=== PATIENT | male | born 1995 | race Caucasian/White ===

== ENCOUNTER 2017-06-15 16:29 | Emergency (ER) | payer MEDICAID ==
[~2017-06-15] VITALS: Ht 185.4 cm; Wt 105.0 kg
[2017-06-15 16:38] VITALS: BP 133/79; PULSE 77; RESP 16; TEMP 98.2; O2SAT 98
[2017-06-15] MEDS ORDERED: TEST1INJ3 IM (16:48)
--- NOTE | 2017-06-15 18:06 | RADRPT ---
EXAM DATE/TIME: 06/15/2017 17:42 [facility] COMPARISON: No previous studies available for comparison. INDICATIONS : Right ankle pain and swelling. MEDICAL HISTORY : None. SURGICAL HISTORY : None. ENCOUNTER: Initial ACUITY: 2 days PAIN SCORE: 8/10 LOCATION: Right ankle FINDINGS: Three view exam was performed of the right ankle. The bony structures are in normal alignment. No e vidence of acute fracture or dislocation. There is soft tissue swelling over the lateral malleolus. T he ankle mortise is intact. No radiopaque foreign bodies are seen. Bony mineralization is normal. CONCLUSION: Soft tissue swelling of the lateral malleolus with no acute fracture or malalignment. Noe Padilla MD on June 15, 2017 at 18:04 Board Certified Radiologist. This report was verified electronically.
--- NOTE | 2017-06-15 18:07 | RADRPT ---
EXAM DATE/TIME: 06/15/2017 17:45 [facility] COMPARISON: No previous studies available for comparison. INDICATIONS : Pain and swelling to right foot MEDICAL HISTORY : None. SURGICAL HISTORY : None. ENCOUNTER: Initial ACUITY: 2 days PAIN SCORE: 8/10 LOCATION: Right foot FINDINGS: Three view examination of the right foot demonstrates no soft tissue swelling, dislocation, or fractu re. The tarsal bones appear intact. The interphalangeal and metatarsophalangeal joints are intact. The calcaneus is intact. Bony mineralization is normal. CONCLUSION: Negative trauma study. Noe Padilla MD on June 15, 2017 at 18:04 Board Certified Radiologist. This report was verified electronically.
[2017-06-15] MEDS ORDERED: predniSONE 20 MG TAB PO ONE (18:15)
[2017-06-15] MEDS ORDERED: TETANUS/DIPHTHERIA TOXOID ADULT 0.5 ML VIAL IM ONE (18:15)
[2017-06-15] MEDS ORDERED: FLUO0.05 TOPICAL (18:16)
--- NOTE | 2017-06-15 18:19 | PD ---
HPI . Right foot pain Chief Complaint: Skin Problem Time Seen by Provider: 16:58 Travel History International Travel<30 days: No Contact w/Intl Traveler<30days: No Traveled to known affect area: No History of Present Illness HPI 22-year-old male presents to emergency department with his parents for evaluation of right foot pain and swelling. Multiple very itchy white pustules with erythema surrounding the base noted on right foot. 2 noted on left foot. There is a language barrier noted. The family speaks Swedish. I attempted to obtain a sales receptionist but the father adamantly declined using a sales receptionist stating he spoke perfect Indian. From the history I was able to gather the patient has cognitive delays, autism, XXY syndrome. The family explained that the patient feels pain differently and did not complain of any pain in his foot. They're not exactly sure when the swelling, injury occurred. The mother denies the patient falling or injuring the right side however cannot explain why it is swollen. The patient is not verbally communicating. The mother is denying any other systemic physiological complaints such as fever, chills, chest pain, shortness breath, abdominal pain, nausea, vomiting, diarrhea. PFSH Past Medical History Developmental Delay: Yes (DOWNS) Immunizations Current: Yes Past Surgical History Surgical History: No Previous Surgery Social History Alcohol Use: No Tobacco Use: No Substance Use: No Allergies-Medications (Allergen,Severity, Reaction): Coded Allergies: No Known Allergies (Unverified , 06/15/17) Reported Meds & Prescriptions Reported Meds & Active Scripts Active Fluocinonide Topical (Fluocinonide) 0.05% Cream 1 Applic TOPICAL BID Apply thin layer to affected area(s) Reported Testosterone Cypionate Inj (Testosterone Cypionate) 100 Mg/Ml Inj Unknown Dose IM Q14D Review of Systems Except as stated in HPI: all other systems reviewed are Neg Physical Exam Narrative GENERAL: Well-nourished, well-developed not verbally communicating 22-year-old male patient in no acute distress. Nontoxic appearing. SKIN: Multiple itchy white pustules noted to right foot with erythema spreading the base noted to the right foot. Two itchy white pustules with erythema surrounding the base noted to the left foot. HEAD: Normocephalic. Atraumatic. EYES: No scleral icterus. No injection or drainage. NECK: Supple, trachea midline. No JVD or lymphadenopathy. CARDIOVASCULAR: Regular rate and rhythm without murmurs, gallops, or rubs. RESPIRATORY: Breath sounds equal bilaterally. No accessory muscle use. GASTROINTESTINAL: Abdomen soft, non-tender, nondistended. MUSCULOSKELETAL: Right foot and ankle mildly edematous. Mild ecchymotic area noted to the dorsal medial aspect of the right foot. No obvious deformity. Data Data Last Documented VS Vital Signs Date Time Temp Pulse Resp B/P (MAP) Pulse Ox O2 Delivery O2 Flow Rate FiO2 06/15/17 16:38 98.2 77 16 133/79 (97) 98 Orders Orders Ankle, Complete ([id number]) (06/15/17 17:25) Foot, Complete ([id number]) (06/15/17 17:25) Ice/Cold Pack (06/15/17 17:25) Tetanus/Diphtheria Tox Adult (Tetanus/Di (06/15/17 18:15) Prednisone (Deltasone) (06/15/17 18:15) Ed Discharge Order (06/15/17 18:19) [facility] Medical Decision Making Medical Screen Exam Complete: Yes Emergency Medical Condition: Yes Differential Diagnosis Differential diagnoses include but not limited to cellulitis, bug bites, fracture, contusion Narrative Course 22-year-old male patient presents emergency department for evaluation of right foot injury. The history is difficult to obtain due to willing with very. The father and mother at bedside and the patient is not verbally communicating. The mother at first agreed to obtain a sales receptionist but the father adamantly denied it saying he didn't need it because he spoke perfect Indian. The right foot looks to be covered in aunt bites. There are multiple white itchy pustules with erythema surrounding the base. There are 2 of these pustules noted to the left foot. Both are itchy. The right foot and ankle is mildly edematous. There is a small area of ecchymosis noted to the dorsal medial aspect of the right foot. The mother denies the patient injuring the right foot are falling. Due to the language barrier though an adequate history is difficult to obtain. I discussed the patient case with my attending Dr. Marin and he suggested that we x-ray the right foot and ankle and then treat the ant bites with a steroid cream. X-ray of the right foot and ankle are unremarkable but did show some soft tissue swelling. Due to the unknown mechanism of injury and the inability of the patient's family to confirm whether the patient was up-to-date on his vaccines his tetanus was updated during this visit. Patient was discharged home with prescription for fluocinolone and instructions to follow up with his primary care otherwise to return to the emergency Department with any worsening signs of infection. Diagnosis Primary Impression: Bug bites Qualified Codes: W57.XXXA - Bitten or stung by nonvenomous insect and other nonvenomous arthropods, initial encounter Referrals: Primary Care Physician Patient Instructions: General Instructions, Insect Bite or Sting (ED) Additional Instructions: Please return to emergency department if your symptoms return or worsen. Return to the emergency department if you notice any secondary infection in the foot such as increasing pain, swelling, redness or fevers. Follow up with your primary care provider. Keep foot and bites clean and dry. Apply the steroid cream twice a day until the problem has resolved. May apply ice to the foot to reduce the swelling. Elevate the foot when resting. Med/Other Pt SpecificInfo: Prescription(s) given Scripts Fluocinonide Topical (Fluocinonide Topical) 0.05% Cream 1 APPLIC TOPICAL BID, #120 GM 0 Refills Apply thin layer to affected area(s) Prov: Trini Burnette 06/15/17 Disposition: 01 DISCHARGE HOME Condition: Stable Trini Burnette Jun 15, 2017 18:19
--- NOTE | 2017-06-15 18:19 | PD ---
HPI . Right foot pain Chief Complaint: Skin Problem Time Seen by Provider: 16:58 Travel History International Travel<30 days: No Contact w/Intl Traveler<30days: No Traveled to known affect area: No History of Present Illness HPI 22-year-old male presents to emergency department with his parents for evaluation of right foot pain and swelling. Multiple very itchy white pustules with erythema surrounding the base noted on right foot. 2 noted on left foot. There is a language barrier noted. The family speaks English. I attempted to obtain a bookkeeping clerk but the father adamantly declined using a bookkeeping clerk stating he spoke perfect [place]ese. From the history I was able to gather the patient has cognitive delays, autism, XXY syndrome. The family explained that the patient feels pain differently and did not complain of any pain in his foot. They're not exactly sure when the swelling, injury occurred. The mother denies the patient falling or injuring the right side however cannot explain why it is swollen. The patient is not verbally communicating. The mother is denying any other systemic physiological complaints such as fever, chills, chest pain, shortness breath, abdominal pain, nausea, vomiting, diarrhea. PFSH Past Medical History Developmental Delay: Yes (DOWNS) Immunizations Current: Yes Past Surgical History Surgical History: No Previous Surgery Social History Alcohol Use: No Tobacco Use: No Substance Use: No Allergies-Medications (Allergen,Severity, Reaction): Coded Allergies: No Known Allergies (Unverified , 06/15/17) Reported Meds & Prescriptions Reported Meds & Active Scripts Active Fluocinonide Topical (Fluocinonide) 0.05% Cream 1 Applic TOPICAL BID Apply thin layer to affected area(s) Reported Testosterone Cypionate Inj (Testosterone Cypionate) 100 Mg/Ml Inj Unknown Dose IM Q14D Review of Systems Except as stated in HPI: all other systems reviewed are Neg Physical Exam Narrative GENERAL: Well-nourished, well-developed not verbally communicating 22-year-old male patient in no acute distress. Nontoxic appearing. SKIN: Multiple itchy white pustules noted to right foot with erythema spreading the base noted to the right foot. Two itchy white pustules with erythema surrounding the base noted to the left foot. HEAD: Normocephalic. Atraumatic. EYES: No scleral icterus. No injection or drainage. NECK: Supple, trachea midline. No JVD or lymphadenopathy. CARDIOVASCULAR: Regular rate and rhythm without murmurs, gallops, or rubs. RESPIRATORY: Breath sounds equal bilaterally. No accessory muscle use. GASTROINTESTINAL: Abdomen soft, non-tender, nondistended. MUSCULOSKELETAL: Right foot and ankle mildly edematous. Mild ecchymotic area noted to the dorsal medial aspect of the right foot. No obvious deformity. Data Data Last Documented VS Vital Signs Date Time Temp Pulse Resp B/P (MAP) Pulse Ox O2 Delivery O2 Flow Rate FiO2 06/15/17 16:38 98.2 77 16 133/79 (97) 98 Orders Orders Ankle, Complete ([id number]) (06/15/17 17:25) Foot, Complete ([id number]) (06/15/17 17:25) Ice/Cold Pack (06/15/17 17:25) Tetanus/Diphtheria Tox Adult (Tetanus/Di (06/15/17 18:15) Prednisone (Deltasone) (06/15/17 18:15) Ed Discharge Order (06/15/17 18:19) [facility] Medical Decision Making Medical Screen Exam Complete: Yes Emergency Medical Condition: Yes Differential Diagnosis Differential diagnoses include but not limited to cellulitis, bug bites, fracture, contusion Narrative Course 22-year-old male patient presents emergency department for evaluation of right foot injury. The history is difficult to obtain due to willing with very. The father and mother at bedside and the patient is not verbally communicating. The mother at first agreed to obtain a bookkeeping clerk but the father adamantly denied it saying he didn't need it because he spoke perfect [place]. The right foot looks to be covered in aunt bites. There are multiple white itchy pustules with erythema surrounding the base. There are 2 of these pustules noted to the left foot. Both are itchy. The right foot and ankle is mildly edematous. There is a small area of ecchymosis noted to the dorsal medial aspect of the right foot. The mother denies the patient injuring the right foot are falling. Due to the language barrier though an adequate history is difficult to obtain. I discussed the patient case with my attending Dr. Marin and he suggested that we x-ray the right foot and ankle and then treat the ant bites with a steroid cream. X-ray of the right foot and ankle are unremarkable but did show some soft tissue swelling. Due to the unknown mechanism of injury and the inability of the patient's family to confirm whether the patient was up-to-date on his vaccines his tetanus was updated during this visit. Patient was discharged home with prescription for fluocinolone and instructions to follow up with his primary care otherwise to return to the emergency Department with any worsening signs of infection. Diagnosis Primary Impression: Bug bites Qualified Codes: W57.XXXA - Bitten or stung by nonvenomous insect and other nonvenomous arthropods, initial encounter Referrals: Primary Care Physician Patient Instructions: General Instructions, Insect Bite or Sting (ED) Additional Instructions: Please return to emergency department if your symptoms return or worsen. Return to the emergency department if you notice any secondary infection in the foot such as increasing pain, swelling, redness or fevers. Follow up with your primary care provider. Keep foot and bites clean and dry. Apply the steroid cream twice a day until the problem has resolved. May apply ice to the foot to reduce the swelling. Elevate the foot when resting. Med/Other Pt SpecificInfo: Prescription(s) given Scripts Fluocinonide Topical (Fluocinonide Topical) 0.05% Cream 1 APPLIC TOPICAL BID, #120 GM 0 Refills Apply thin layer to affected area(s) Prov: Trini Burnette 06/15/17 Disposition: 01 DISCHARGE HOME Condition: Stable Trini Burnette Jun 15, 2017 18:19
--- NOTE | 2017-06-15 18:19 | PD ---
HPI . Right foot pain Chief Complaint: Skin Problem Time Seen by Provider: 16:58 Travel History International Travel<30 days: No Contact w/Intl Traveler<30days: No Traveled to known affect area: No History of Present Illness HPI 22-year-old male presents to emergency department with his parents for evaluation of right foot pain and swelling. Multiple very itchy white pustules with erythema surrounding the base noted on right foot. 2 noted on left foot. There is a language barrier noted. The family speaks Hebrew. I attempted to obtain a aluminizer but the father adamantly declined using a aluminizer stating he spoke perfect Kyrgyz. From the history I was able to gather the patient has cognitive delays, autism, XXY syndrome. The family explained that the patient feels pain differently and did not complain of any pain in his foot. They're not exactly sure when the swelling, injury occurred. The mother denies the patient falling or injuring the right side however cannot explain why it is swollen. The patient is not verbally communicating. The mother is denying any other systemic physiological complaints such as fever, chills, chest pain, shortness breath, abdominal pain, nausea, vomiting, diarrhea. PFSH Past Medical History Developmental Delay: Yes (DOWNS) Immunizations Current: Yes Past Surgical History Surgical History: No Previous Surgery Social History Alcohol Use: No Tobacco Use: No Substance Use: No Allergies-Medications (Allergen,Severity, Reaction): Coded Allergies: No Known Allergies (Unverified , 06/15/17) Reported Meds & Prescriptions Reported Meds & Active Scripts Active Fluocinonide Topical (Fluocinonide) 0.05% Cream 1 Applic TOPICAL BID Apply thin layer to affected area(s) Reported Testosterone Cypionate Inj (Testosterone Cypionate) 100 Mg/Ml Inj Unknown Dose IM Q14D Review of Systems Except as stated in HPI: all other systems reviewed are Neg Physical Exam Narrative GENERAL: Well-nourished, well-developed not verbally communicating 22-year-old male patient in no acute distress. Nontoxic appearing. SKIN: Multiple itchy white pustules noted to right foot with erythema spreading the base noted to the right foot. Two itchy white pustules with erythema surrounding the base noted to the left foot. HEAD: Normocephalic. Atraumatic. EYES: No scleral icterus. No injection or drainage. NECK: Supple, trachea midline. No JVD or lymphadenopathy. CARDIOVASCULAR: Regular rate and rhythm without murmurs, gallops, or rubs. RESPIRATORY: Breath sounds equal bilaterally. No accessory muscle use. GASTROINTESTINAL: Abdomen soft, non-tender, nondistended. MUSCULOSKELETAL: Right foot and ankle mildly edematous. Mild ecchymotic area noted to the dorsal medial aspect of the right foot. No obvious deformity. Data Data Last Documented VS Vital Signs Date Time Temp Pulse Resp B/P (MAP) Pulse Ox O2 Delivery O2 Flow Rate FiO2 06/15/17 16:38 98.2 77 16 133/79 (97) 98 Orders Orders Ankle, Complete ([id number]) (06/15/17 17:25) Foot, Complete ([id number]) (06/15/17 17:25) Ice/Cold Pack (06/15/17 17:25) Tetanus/Diphtheria Tox Adult (Tetanus/Di (06/15/17 18:15) Prednisone (Deltasone) (06/15/17 18:15) Ed Discharge Order (06/15/17 18:19) [facility] Medical Decision Making Medical Screen Exam Complete: Yes Emergency Medical Condition: Yes Differential Diagnosis Differential diagnoses include but not limited to cellulitis, bug bites, fracture, contusion Narrative Course 22-year-old male patient presents emergency department for evaluation of right foot injury. The history is difficult to obtain due to willing with very. The father and mother at bedside and the patient is not verbally communicating. The mother at first agreed to obtain a aluminizer but the father adamantly denied it saying he didn't need it because he spoke perfect Kyrgyz. The right foot looks to be covered in aunt bites. There are multiple white itchy pustules with erythema surrounding the base. There are 2 of these pustules noted to the left foot. Both are itchy. The right foot and ankle is mildly edematous. There is a small area of ecchymosis noted to the dorsal medial aspect of the right foot. The mother denies the patient injuring the right foot are falling. Due to the language barrier though an adequate history is difficult to obtain. I discussed the patient case with my attending Dr. Marin and he suggested that we x-ray the right foot and ankle and then treat the ant bites with a steroid cream. X-ray of the right foot and ankle are unremarkable but did show some soft tissue swelling. Due to the unknown mechanism of injury and the inability of the patient's family to confirm whether the patient was up-to-date on his vaccines his tetanus was updated during this visit. Patient was discharged home with prescription for fluocinolone and instructions to follow up with his primary care otherwise to return to the emergency Department with any worsening signs of infection. Diagnosis Primary Impression: Bug bites Qualified Codes: W57.XXXA - Bitten or stung by nonvenomous insect and other nonvenomous arthropods, initial encounter Referrals: Primary Care Physician Patient Instructions: General Instructions, Insect Bite or Sting (ED) Additional Instructions: Please return to emergency department if your symptoms return or worsen. Return to the emergency department if you notice any secondary infection in the foot such as increasing pain, swelling, redness or fevers. Follow up with your primary care provider. Keep foot and bites clean and dry. Apply the steroid cream twice a day until the problem has resolved. May apply ice to the foot to reduce the swelling. Elevate the foot when resting. Med/Other Pt SpecificInfo: Prescription(s) given Scripts Fluocinonide Topical (Fluocinonide Topical) 0.05% Cream 1 APPLIC TOPICAL BID, #120 GM 0 Refills Apply thin layer to affected area(s) Prov: Trini Burnette 06/15/17 Disposition: 01 DISCHARGE HOME Condition: Stable Trini Burnette Jun 15, 2017 18:19
== END 2017-06-15 18:32 | disposition home or self-care (01) ==
LOC: PHEFT 16:29
DX: S90.861A Insect bite (nonvenomous), right foot, initial encounter (principal); F84.0 Autistic disorder; Q98.0 Klinefelter syndrome karyotype 47, XXY; W57.XXXA Bitten or stung by nonvenomous insect and other nonvenomous arthropods, initial encounter; Z79.899 Other long term (current) drug therapy; Z23 Encounter for immunization
CPT/HCPCS: 73610; 73630; 90471; 90714; 99283; J7512